=== PATIENT | male | born 1990 | race Caucasian/White ===

== ENCOUNTER 2018-10-11 05:16 | Emergency (ER) | payer OTHER ==
[~2018-10-11] VITALS: Ht 175.2 cm; Wt 68.0 kg
[2018-10-11] MEDS ORDERED: AVPAK AZITHROM250 M1 PO (05:43)
[2018-10-11] MEDS ORDERED: CLARITIN10 MG PO (05:43)
[2018-10-11] MEDS ORDERED: ROBITUSSIN5 ML PO (05:43)
[2018-10-11] MEDS ORDERED: TESSALON PERLE100 MG PO (05:43)
[2018-10-11] MEDS ORDERED: PREDNISONE50 MG PO (05:43)
== END 2018-10-11 05:50 | disposition home or self-care (01) ==
LOC: ED 05:16
DX: J40 Bronchitis, not specified as acute or chronic (principal); F17.200 Nicotine dependence, unspecified, uncomplicated